=== PATIENT | female | born 1965 | race Caucasian/White ===

== ENCOUNTER 2017-04-12 11:41 | Emergency (ER) | payer BC ==
[~2017-04-12] VITALS: Wt 63.5 kg
[2017-04-12 12:16] LABS: BASO # 0.1 10*3/uL (0.0-0.1); BASO % 2.4 % (0.0-1.0); EOS # 0.3 10*3/uL (0.0-0.4); EOS % 5.2 % (1.0-4.0); HEMATOCRIT 36.2 % (37.0-47.0); HEMOGLOBIN 11.8 g/dl (12.0-16.0); LYMPH # 1.8 10*3/uL (1.3-4.4); LYMPH % 36.4 % (27.0-41.0); MEAN CELL VOLUME 100.6 fl (81.0-99.0); MEAN CORPUSCULAR HGB 32.8 pg (27.0-31.0); MEAN CORPUSCULAR HGB CONC 32.6 g/dl (33.0-37.0); MEAN PLATELET VOLUME 9.2 fl (9.6-12.3); MONO # 0.3 10*3/uL (0.1-1.0); MONO % 6.8 % (3.0-9.0); NEUT # 2.4 10*3/uL (2.3-7.9); PLATELET COUNT AUTOMATED 230 10*3/uL (130-400); RED CELL DISTRI WIDTH 13.8 % (0-14.5)
[2017-04-12 12:24] LABS: INTERNATIONAL NORM RATIO 1.1 (2.0-3.5); PROTHROMBIN TIME 11.4 SECONDS (9.0-12.4)
[2017-04-12 12:33] LABS: BILIRUBIN, TOTAL 0.4 mg/dl (0.2-1.0); BUN 13 mg/dl (7-24); CARBON DIOXIDE 27 mmol/L (21-32); CHLORIDE 110 mmol/L (98-107); CKMB 1.2 ng/ml (0.5-3.6); EST GLOM FILT AFRICAN AMERICAN > 60 ml/min; GLUCOSE 90 mg/dL (65-99); POTASSIUM 4.5 mmol/L (3.5-5.1); SGOT/AST 27 IU/L (3-35); SODIUM 143 mmol/L (136-145); TOTAL PROTEIN 6.5 gm/dL (6.4-8.2)
[2017-04-12 12:46] LABS: C-REACTIVE PROTEIN < 0.29 MG/DL (0-0.3)
[2017-04-12 12:58] LABS: ALKALINE PHOSPHATASE 72 U/L (45-117); CPK 161 U/L (26-192); SGPT/ALT 19 U/L (12-78)
[2017-04-12 13:00] LABS: TROPONIN I < 0.015 ng/ml (<0.045)
[2017-04-12] MEDS ORDERED: TAMOXIFEN CITRA20 MG PO (13:49)
[2017-04-12] MEDS ORDERED: AZULFIDINE500 M1 PO (13:49)
[2017-04-12] MEDS ORDERED: NATURE'S BLEND F1 MG PO (13:50)
[2017-04-12] MEDS ORDERED: HUMIRA40 MG/0.3 SQ (13:51)
[2017-04-12] MEDS ORDERED: METHOTREXATE2.5 M1 PO (13:51)
[2017-04-12] MEDS ORDERED: PLAQUENIL200 MG PO (13:52)
[2017-04-12] MEDS ORDERED: NAPROSYN500 MG PO (13:53)
== END 2017-04-12 14:39 | disposition home or self-care (01) ==
LOC: ED 11:41
PROVIDERS: Emergency Medicine
DX: R07.89 Other chest pain (principal); R42 Dizziness and giddiness; R06.00 Dyspnea, unspecified; M06.9 Rheumatoid arthritis, unspecified; Z79.899 Other long term (current) drug therapy; Z87.891 Personal history of nicotine dependence; Z85.3 Personal history of malignant neoplasm of breast

== ENCOUNTER → 2020-10-07 | Outpatient (CLI) | payer BC ==
[~2020-10-07] MED LIST: AZULFIDINE500 M1 PO; HUMIRA40 MG/0.3 SQ; METHOTREXATE2.5 M1 PO; NAPROSYN500 MG PO; NATURE'S BLEND F1 MG PO; PLAQUENIL200 MG PO; TAMOXIFEN CITRA20 MG PO
== END | disposition home or self-care (01) ==
LOC: COVID19 11:37
PROVIDERS: ATTEND Internal Medicine
DX: Z20.828 Contact with and (suspected) exposure to other viral communicable diseases (principal)

== ENCOUNTER → 2020-10-21 | Outpatient (CLI) | payer BC | END | disposition home or self-care (01) | LOC: RAD 13:44 | PROVIDERS: ATTEND Internal Medicine | DX: J40 Bronchitis, not specified as acute or chronic (principal) ==

== ENCOUNTER → 2020-11-09 | Outpatient (CLI) | payer BC | END | disposition home or self-care (01) | LOC: COVID19 12:28 | PROVIDERS: ATTEND Internal Medicine | DX: Z20.822 Contact with and (suspected) exposure to COVID-19 (principal) ==

== ENCOUNTER → 2021-07-28 | Outpatient (CLI) | payer BC | END | disposition home or self-care (01) | LOC: RAD 12:18 | PROVIDERS: ATTEND Internal Medicine | DX: U07.1 COVID-19 (principal); R09.02 Hypoxemia ==

== ENCOUNTER → 2024-02-15 | Outpatient (CLI) | payer BC ==
[~2024-02-15] MED LIST changes: +CEFDINIR300 MG PO; +DOXYCYCLINE MO100 MG PO
== END | disposition home or self-care (01) ==
LOC: CARD 00:03
PROVIDERS: ATTEND Internal Medicine
DX: I34.0 Nonrheumatic mitral (valve) insufficiency (principal)

== ENCOUNTER → 2024-02-17 | Outpatient (CLI) | payer BC ==
[~2024-02-17] MED LIST changes: +Technetium Tc 99M Tetrofosmi 0.23 MG KIT IJ SCH
== END | disposition home or self-care (01) ==
LOC: CARD 00:08
PROVIDERS: ATTEND Internal Medicine
DX: R07.9 Chest pain, unspecified (principal)